=== PATIENT | female | born 1975 | race Two or more races ===

== ENCOUNTER 2020-12-19 08:35 | Emergency (ER) | payer BC, OTHER ==
[~2020-12-19] VITALS: Ht 162.6 cm; Wt 81.6 kg
[2020-12-19] MEDS ORDERED: cefTRIAXone 1GM/50ML D5W 50 ML IV ONE (09:30)
[2020-12-19] MEDS ORDERED: ACETAMINOPHEN 325 MG TAB PO ONE (09:30)
[2020-12-19] MEDS ORDERED: methylPREDNISolone SOD SUCC 125 MG/2 ML VL IV ONE (09:30)
[2020-12-19] MEDS ORDERED: SODIUM CHLORIDE 0.9% 1,000 ML IV ONE (09:30)
[2020-12-19 10:05] LABS: Basophils # (auto) 0 10 ^3/uL (0-0.2); Basophils % (auto) 0.2 % (0.0-2.0); Eosinophils # (auto) 0 10 ^3/uL (0-0.8); Eosinophils % (auto) 0.2 % (0.0-7.0); Hemoglobin 11.3 g/dL (12.2-16.2); Lymphocytes # (auto) 1.1 10 ^3/uL (0.4-5.4); White Blood Cell 5.5 10^3/uL (4.4-10.8)
[2020-12-19 10:08] LABS: Hematocrit 34.9 % (36.0-46.0); Mean Corpuscular Hemoglobin 22.3 pg (28.0-32.0); Mean Corpuscular Hgb Conc. 32.4 g/dL (32.0-36.0); Mean Corpuscular Volume 68.9 fL (80.0-100.0); Monocytes # (auto) 0.5 10 ^3/uL (0-1.3); Monocytes % (auto) 8.4 % (0.0-12.0); Neutrophils # (auto) 3.8 10 ^3/uL (1.6-8.6); Neutrophils % (auto) 70.2 % (37.0-80.0); Nucleated Red Blood Cells % 0.1 %; Red Blood Cells 5.07 10^6/uL (4.0-5.20)
[2020-12-19 10:17] LABS: Albumin 3.4 g/dL (3.4-5.0); Potassium 4.1 mmol/L (3.5-5.1)
[2020-12-19 10:22] LABS: BUN/Creatinine Ratio 9.9; Bilirubin, Total 0.4 mg/dL (0.2-1.0); Total Protein 8.3 g/dL (6.4-8.2)
[2020-12-19 12:20] VITALS: BP 98/60
== END 2020-12-19 12:34 | disposition home or self-care (01) ==
LOC: ER 08:35
DX: U07.1 COVID-19 (principal); J06.9 Acute upper respiratory infection, unspecified; D64.9 Anemia, unspecified
CPT/HCPCS: 36415; 71045; 80053; 85025; 96365; 96366; 96375; 99284; J0696; J2930; J7030